=== PATIENT | male | born 1985 | race Caucasian/White ===

== ENCOUNTER 2018-11-25 07:40 | Emergency (ER) | payer OTHER ==
[~2018-11-25] VITALS: Ht 177.8 cm; Wt 86.4 kg
[2018-11-25 07:43] VITALS: TEMP 98.8
[2018-11-25 08:35] LABS: BASO % 0.1 % (0.0-2.0); EOS # 0.1 (0.0-0.7); EOS % 0.7 % (0-4.0); GRAN # 4.8 (1.4-6.5); GRAN % 69.3 % (42.2-75.2); HEMATOCRIT 41.6 % (42.0-52.0); LYMPH # 1.2 (1.2-3.4); LYMPH % 16.6 % (20.0-51.0); MEAN CELL VOLUME 87 fl (80.0-100.0); MEAN CORPUSCULAR HEMOGLOBIN 29 pg (27.0-31.0); MEAN CORPUSCULAR HGB CONC 34 g/dl (33.0-37.0); MEAN PLATELET VOLUME 9.4 fl (7.4-10.4); MONO # 0.9 (0.1-0.6); PLATELET COUNT 198 K/mm3 (130-400); RED BLOOD COUNT 4.81 M/mm3 (4.20-5.60); REDCELL DISTRIBUTION WIDTH-CV 12.4 % (11.5-14.5)
[2018-11-25 08:41] LABS: PROTHROMBIN TIME 11.9 SECONDS (9.7-12.8)
[2018-11-25 08:44] LABS: PARTIAL THROMBOPLASTIN TIME 32.4 SECONDS (26.0-37.0)
[2018-11-25 08:49] LABS: ALBUMIN 4.2 gm/dL (3.5-5.0); BILIRUBIN,TOTAL 0.7 mg/dL (0.0-1.0); C-REACTIVE PROTEIN 3.2 mg/dL (0.0-0.9); CALCIUM 9.2 mg/dL (8.4-10.2); CREATININE, serum 0.81 (0.66-1.25); TOTAL PROTEIN 7.1 gm/dL (6.4-8.2)
[2018-11-25 08:57] LABS: ERYTHROCYTE SEDIMENTATION RATE 15 mm/hr (0-15)
[2018-11-25] MEDS ORDERED: LEVAQUIN 750MG750 M1 PO (10:08)
[2018-11-25 12:25] VITALS: BP 129/76; PULSE 66
== END 2018-11-25 12:25 | disposition home or self-care (01) ==
LOC: COL.ER 07:40
PROVIDERS: Emergency Medicine
DX: J18.1 Lobar pneumonia, unspecified organism (principal)
CPT/HCPCS: J1200; J1885; J2550; J7030